=== PATIENT | female | born 1965 | race Caucasian/White ===

== ENCOUNTER 2022-10-28 12:49 | Inpatient (IN) ==
--- NOTE | 2022-10-28 12:57 | DR.GENAD ---
HPI <Magdy Childs - Last Filed: 10/28/22 16:02> Time Seen Time Seen by Provider: 10/28/22 13:05 Complaint/Symptoms Chief Complaint Doctors Comments: 57 y/o female presents for evalution. Was traveling to see Dr Ritika VILLASENOR. Had a syncopal episode in the car. Pt with a h/o chronic ascites, cirrhosis. + still drinks alcohol. Has had increased swelling of the abdomen over the past several days. + feels tight. + loose cough, with shortness of breath. Denies fevers, nausea, vomiting. Has been having diarrhea. Abdomen last drained 1 month ago. Nurses notes reviewed Nurses Notes Review: Yes Source History Provided: Patient and Family Member PMH <Magdy Childs - Last Filed: 10/28/22 16:02> PMH Past Medical History: Yes Past Medical History Comment: Cirrhosis, ascites Social History Does patient currently use any type of tobacco product: Yes Alcohol Use: DAILY Do you use any recreational Drugs:: No ROS <Magdy Childs - Last Filed: 10/28/22 16:02> Review of Systems Constitutional: Weakness Eyes: No Symptoms Reported ENTM: No Symptoms Reported Respiratoy: Moist Cough and Short of Breath Cardiovascular: No Symptoms Reported Gastrointestinal/Abdominal: See HPI Genitourinary: No Symptoms Reported Neurological: No Symptoms Reported Musculoskeletal: No Symptoms Reported Integumentary: No Symptoms Reported Psychiatric: No Symptoms Reported All Other Systems: Reviewed and Negative PE <Magdy Childs Last Filed: 10/28/22 16:02> Vital Signs Vitals: Temperature 97.9 F Pulse Rate 107 Respiratory Rate 24 Blood Pressure 104/74 O2 Sat by Pulse Oximetry 97 General General Appearance: Alert and Anxious Eyes Eye exam: PERRL and EOMI ENT ENT Exam: Normal Oropharynx and Mucous Membranes Moist Neck Neck Exam: Normal Inspection Respiratory Respiratory Exam: Other (+ decreased breath sounds R base.); negative Accessory Muscle Use or Respiratory Distress Cardiovascular Cardiovascular Exam: Regular Rate, Normal Rhythm, Tachycardia and Normal Heart Sounds Abdominal Exam Abdominal Exam: Normal Bowel Sounds, Soft and Distention (+ ascites); negative Tenderness, Guarding or Rigidity Extremities Extremities Exam: Normal Inspection and Full ROM; negative Edema Back Back Exam: Normal Inspection Neurologic Neurological Exam: Alert, Oriented X3 and CN II-XII Intact; negative Motor Sensory Deficit Skin Skin Exam: Warm and Dry <KHALDON AL SAADI - Last Filed: 10/28/22 15:53> Vital Signs Vitals: Temperature 97.9 F Pulse Rate 107 Respiratory Rate 24 Blood Pressure 104/74 O2 Sat by Pulse Oximetry 97 COURSE <Magdy Childs - Last Filed: 10/28/22 16:02> Treatment Treatment: 57 y/o female, h/o cirrhosis/ascites, had syncopal episode on way to GI office. + awake, alert on arrival. W/u initiated. CXR - + belem out R side. pO2 87% on RA, better on O2. + elevated WBC 15K, low K+ 2.8. Will give dose of IV rocephin, to cover for any possible underlying pneumonia. Will pursue CT of chest with IV contrast to better evaluate R lung. 1540 - + large R pleural effusion, surround collapsed/compressed R lungs. No previous h/o pleural effusions per pt. Discussed with Dr Nicole, covering for admissions. Will admit, consult with Dr Hunter to evaluate for chest tube/drainage of R pleural effusion, as well as for tapping her worsening ascites. ROR <Magdy Childs - Last Filed: 10/28/22 16:02> Labs Reviewed Laboratory Results Reviewed?: Yes Result Diagrams: 10/28/22 13:31 10/28/22 13:27 Laboratory: WBC 15.8 X10^3/uL (3.6-10.0) H 10/28/22 13:31 RBC 3.49 X10^6/uL (3.5-5.4) L 10/28/22 13:31 Hgb 11.4 g/dL (12.0-16.0) L 10/28/22 13:31 Hct 34.4 % (36.0-47.0) L 10/28/22 13:31 MCV 98.6 fL (80.0-100.0) 10/28/22 13:31 MCH 32.7 pg (27.0-34.0) 10/28/22 13:31 MCHC 33.1 g/dL (33.0-35.0) 10/28/22 13:31 RDW 21.2 % (11.6-16.5) H 10/28/22 13:31 Plt Count 183 X10^3/uL (150.0-450.0) 10/28/22 13:31 Plt Count Comment Adequate (ADEQUATE) 10/28/22 13:31 MPV 9.1 fL (7.4-11.0) 10/28/22 13:31 Neut % (Auto) 76.5 % (42.0-75.0) H 10/28/22 13:31 Lymph % (Auto) 12.9 % (21.0-51.0) L 10/28/22 13:31 [place] % (Auto) 10.1 % (0.0-13.0) 10/28/22 13:31 Eos % (Auto) 0.0 % (0.9-2.9) L 10/28/22 13:31 Baso % (Auto) 0.5 % (0.2-1.0) 10/28/22 13:31 Neut # (Auto) 12.1 x10^3/uL (2.2-4.8) H 10/28/22 13:31 Lymph # (Auto) 2.0 X10^3/uL (1.3-2.9) 10/28/22 13:31 [place] # (Auto) 1.6 x10^3/uL (0.3-0.8) H 10/28/22 13:31 Eos # (Auto) 0.0 x10^3/uL (0.0-0.2) 10/28/22 13:31 Baso # (Auto) 0.1 X10^3/uL (0.0-0.1) 10/28/22 13:31 Absolute Nucleated RBC 0.2 /100WBC 10/28/22 13:31 Plt Morphology Comment Normal (NORMAL) 10/28/22 13:31 RBC Morphology Abnormal (NORMAL) A 10/28/22 13:31 Anisocytosis 1+ A 10/28/22 13:31 Target Cells Present 10/28/22 13:31 Sample Site Rr 10/28/22 12:54 ABG pH 7.380 (7.35-7.45) 10/28/22 12:54 ABG pCO2 41.0 mmHg (35.0-45.0) 10/28/22 12:54 ABG pO2 54.0 mmHg (80.0-100.0) L 10/28/22 12:54 ABG HCO3 24.3 mmol/L (22-26) 10/28/22 12:54 ABG O2 Saturation 87.0 % (90-100) L 10/28/22 12:54 ABG Base Excess -0.8 mmol/L (-2.0-2.0) 10/28/22 12:54 Abilio Test Pos 10/28/22 12:54 A-a Gradient 44.0 mmHg 10/28/22 12:54 FiO2 21.0 10/28/22 12:54 Blood Gas Comments Pt yaw well cdn 10/28/22 12:54 Sodium 135 mmol/L (136-145) L 10/28/22 13:27 Corrected Sodium 136 mmol/L (136-145) 10/28/22 13:27 Potassium 2.8 mmol/L (3.5-5.1) L* 10/28/22 13:27 Chloride 98 mmol/L (98-107) 10/28/22 13:27 Carbon Dioxide 25.8 mmol/L (21-32) 10/28/22 13:27 BUN 8 mg/dL (7-18) 10/28/22 13:27 Creatinine 0.73 mg/dL (0.55-1.02) 10/28/22 13:27 Est GFR (MDRD) Af Amer > 60 (>60) 10/28/22 13:27 Est GFR (MDRD) Non-Af > 60 (>60) 10/28/22 13:27 Glucose 137 mg/dL (65-99) H 10/28/22 13:27 Lactic Acid 5.1 mmol/L (0.4-2.0) H 10/28/22 13:27 Calcium 7.7 mg/dL (8.5-10.1) L 10/28/22 13:27 Corrected Calcium 9.1 mg/dL (8.5-10.1) 10/28/22 13:27 Magnesium 1.8 mg/dL (2.0-2.9) L 10/28/22 13:27 Total Bilirubin 1.70 mg/dL (0.2-1.0) H 10/28/22 13:27 AST 188 Units/L (15-37) H 10/28/22 13:27 ALT 48 Units/L (12-78) 10/28/22 13:27 Alkaline Phosphatase 164 Units/L (46-116) H 10/28/22 13:27 Ammonia 57 umol/L (11-32) H 10/28/22 13:27 Troponin I High Sens 14.6 ng/L (4.0-60.0) 10/28/22 13:27 Total Protein 7.3 g/dL (6.4-8.2) 10/28/22 13:27 Albumin 2.2 g/dL (3.4-5.0) L 10/28/22 13:27 Globulin 5.1 g/dL (2.5-4.5) H 10/28/22 13:27 Albumin/Globulin Ratio 0.4 Ratio (1.1-2.1) L 10/28/22 13:27 Lipase 471 Units/L (73-393) H 10/28/22 13:27 WBC elevated 15K. Potassium low at 2.8. XRAY XRAY Interpreted by: Both X-ray Results: + large R pleural effusion, with collapse of R lungs. + abdominal ascites. <QASIM KLINE - Last Filed: 10/28/22 15:53> Labs Reviewed Laboratory: WBC 15.8 X10^3/uL (3.6-10.0) H 10/28/22 13:31 RBC 3.49 X10^6/uL (3.5-5.4) L 10/28/22 13:31 Hgb 11.4 g/dL (12.0-16.0) L 10/28/22 13:31 Hct 34.4 % (36.0-47.0) L 10/28/22 13:31 MCV 98.6 fL (80.0-100.0) 10/28/22 13:31 MCH 32.7 pg (27.0-34.0) 10/28/22 13:31 MCHC 33.1 g/dL (33.0-35.0) 10/28/22 13:31 RDW 21.2 % (11.6-16.5) H 10/28/22 13:31 Plt Count 183 X10^3/uL (150.0-450.0) 10/28/22 13:31 Plt Count Comment Adequate (ADEQUATE) 10/28/22 13:31 MPV 9.1 fL (7.4-11.0) 10/28/22 13:31 Neut % (Auto) 76.5 % (42.0-75.0) H 10/28/22 13:31 Lymph % (Auto) 12.9 % (21.0-51.0) L 10/28/22 13:31 [place] % (Auto) 10.1 % (0.0-13.0) 10/28/22 13:31 Eos % (Auto) 0.0 % (0.9-2.9) L 10/28/22 13:31 Baso % (Auto) 0.5 % (0.2-1.0) 10/28/22 13:31 Neut # (Auto) 12.1 x10^3/uL (2.2-4.8) H 10/28/22 13: Lymph # (Auto) 2.0 X10^3/uL (1.3-2.9) 10/28/22 13:31 [place] # (Auto) 1.6 x10^3/uL (0.3-0.8) H 10/28/22 13:31 Eos # (Auto) 0.0 x10^3/uL (0.0-0.2) 10/28/22 13:31 Baso # (Auto) 0.1 X10^3/uL (0.0-0.1) 10/28/22 13: Absolute Nucleated RBC 0.2 /100WBC 10/28/22 13:31 Plt Morphology Comment Normal (NORMAL) 10/28/22 13: RBC Morphology Abnormal (NORMAL) A 10/28/22 13: Anisocytosis 1+ A 10/28/22 13:31 Target Cells Present 10/28/22 13:31 Sample Site Rr 10/28/22 12:54 ABG pH 7.380 (7.35-7.45) 10/28/22 12:54 ABG pCO2 41.0 mmHg (35.0-45.0) 10/28/22 12:54 ABG pO2 54.0 mmHg (80.0-100.0) L 10/28/22 12:54 ABG HCO3 24.3 mmol/L (22-26) 10/28/22 12:54 ABG O2 Saturation 87.0 % (90-100) L 10/28/22 12:54 ABG Base Excess -0.8 mmol/L (-2.0-2.0) 10/28/22 12:54 Abilio Test Pos 10/28/22 12:54 A-a Gradient 44.0 mmHg 10/28/22 12:54 FiO2 21.0 10/28/22 12:54 Blood Gas Comments Pt yaw well cdn 10/28/22 12:54 Sodium 135 mmol/L (136-145) L 10/28/22 13:27 Corrected Sodium 136 mmol/L (136-145) 10/28/22 13:27 Potassium 2.8 mmol/L (3.5-5.1) L* 10/28/22 13:27 Chloride 98 mmol/L (98-107) 10/28/22 13:27 Carbon Dioxide 25.8 mmol/L (21-32) 10/28/22 13:27 BUN 8 mg/dL (7-18) 10/28/22 13:27 Creatinine 0.73 mg/dL (0.55-1.02) 10/28/22 13:27 Est GFR (MDRD) Af Amer > 60 (>60) 10/28/22 13:27 Est GFR (MDRD) Non-Af > 60 (>60) 10/28/22 13:27 Glucose 137 mg/dL (65-99) H 10/28/22 13:27 Lactic Acid 5.1 mmol/L (0.4-2.0) H 10/28/22 13:27 Calcium 7.7 mg/dL (8.5-10.1) L 10/28/22 13:27 Corrected Calcium 9.1 mg/dL (8.5-10.1) 10/28/22 13:27 Magnesium 1.8 mg/dL (2.0-2.9) L 10/28/22 13:27 Total Bilirubin 1.70 mg/dL (0.2-1.0) H 10/28/22 13:27 AST 188 Units/L (15-37) H 10/28/22 13:27 ALT 48 Units/L (12-78) 10/28/22 13:27 Alkaline Phosphatase 164 Units/L (46-116) H 10/28/22 13:27 Ammonia 57 umol/L (11-32) H 10/28/22 13:27 Troponin I High Sens 14.6 ng/L (4.0-60.0) 10/28/22 13:27 Total Protein 7.3 g/dL (6.4-8.2) 10/28/22 13:27 Albumin 2.2 g/dL (3.4-5.0) L 10/28/22 13:27 Globulin 5.1 g/dL (2.5-4.5) H 10/28/22 13:27 Albumin/Globulin Ratio 0.4 Ratio (1.1-2.1) L 10/28/22 13:27 Lipase 471 Units/L (73-393) H 10/28/22 13:27 Opioid <Magdy Childs - Last Filed: 10/28/22 16:02> Opioid Risk Tool Total: 0 Total Score Risk Category: Low Risk Copyright: Maximiliano SAENZ predicting aberrant behaviors <QASIM KLINE - Last Filed: 10/28/22 15:53> Opioid Risk Tool Total: 0 Total Score Risk Category: Low Risk Discharge Plan Diagnosis Discharge Problem: Ascites due to alcoholic cirrhosis, Pleural effusion, right, Acute dyspnea Discharge Plan Patient Disposition: ADMITTED INPATIENT Condition: Stable Orders to Discharge Patient Discharge Orders: Transfer (Routine); Ordered 10/28/22 Ordered By: Magdy Childs
[2022-10-28 13:05] LABS: ABG ALLEN TEST POS; ABG BASE EXCESS -0.8 mmol/L (-2.0-2.0); ABG HCO3 24.3 mmol/L (22-26)
[2022-10-28 13:22] LABS: BASOPHILS # (AUTO) 0.1 X10^3/uL (0.0-0.1); BASOPHILS % (AUTO) 0.5 % (0.2-1.0); HEMATOCRIT 34.4 % (36.0-47.0); HEMOGLOBIN 11.4 g/dL (12.0-16.0); LYMPHOCYTES % (AUTO) 12.9 % (21.0-51.0); MEAN CORPUSCULAR HEMOGLOBIN 32.7 pg (27.0-34.0); MEAN CORPUSCULAR HGB CONC 33.1 g/dL (33.0-35.0); MEAN CORPUSCULAR VOLUME 98.6 fL (80.0-100.0); MEAN PLATELET VOLUME 9.1 fL (7.4-11.0); MONOCYTES # (AUTO) 1.6 x10^3/uL (0.3-0.8); MONOCYTES % (AUTO) 10.1 % (0.0-13.0); NEUTROPHILS # (AUTO) 12.1 x10^3/uL (2.2-4.8); NEUTROPHILS % (AUTO) 76.5 % (42.0-75.0); RED BLOOD COUNT 3.49 X10^6/uL (3.5-5.4); RED CELL DISTRIBUTION WIDTH 21.2 % (11.6-16.5); WHITE BLOOD COUNT 15.8 X10^3/uL (3.6-10.0)
[2022-10-28 13:35] LABS: ALANINE AMINOTRANSFERASE 48 Units/L (12-78); ALBUMIN 2.2 g/dL (3.4-5.0); ALKALINE PHOSPHATASE 164 Units/L (46-116); ASPARTATE AMINO TRANSFERASE 188 Units/L (15-37); BLOOD UREA NITROGEN 8 mg/dL (7-18); CALCIUM 7.7 mg/dL (8.5-10.1); CARBON DIOXIDE 25.8 mmol/L (21-32); CHLORIDE 98 mmol/L (98-107); COR CA(FOR HYPOALB) 9.1 mg/dL (8.5-10.1); COR NA(FOR HYPERGLY) 136 mmol/L (136-145); CREATININE 0.73 mg/dL (0.55-1.02); LIPASE 471 Units/L (73-393); SODIUM 135 mmol/L (136-145); TOTAL PROTEIN 7.3 g/dL (6.4-8.2); eGFR NON BLACK RACES > 60 (>60)
[2022-10-28 13:38] LABS: ANISOCYTOSIS 1+; PLATELET MORPHOLOGY COMMENT NORMAL (NORMAL); TARGET CELLS PRESENT
[2022-10-28 14:04] LABS: AMMONIA 57 umol/L (11-32)
[2022-10-28 14:10] LABS: LACTIC ACID 5.1 mmol/L (0.4-2.0)
[2022-10-28] MEDS ORDERED: ROCEPHIN VIAL 1 GRAM 1 G in NS 100 ML IV 100 ML IV ONE (14:15)
[2022-10-28] MEDS ORDERED: ROCEPHIN VIAL 1 GRAM ONE (14:21)
--- NOTE | 2022-10-28 14:40 | RAD ---
HISTORYDYSPNEASTUDYSingle-view [id number]/27/2023FINDINGSThe trachea is midline. The cardiac silhouette is unremarkable. Complete opacification of the right wilbert thorax is observed with expansion of the intracostal space is likely the basis of underlying effusion. The left wilbert thorax appears well aerated. The bony thorax is unremarkable.IMPRESSIONComplete whiteout of the right chest without significant volume loss. Findings are likely the basis of underlying effusion.Electronically signed by: SHARA SHARMA (Oct 28, 2022 14:39:21)
[2022-10-28] MEDS ORDERED: MORPHINE SULFATE INJ 4 MG IVP ONE (14:41)
[2022-10-28] MEDS ORDERED: ZOFRAN INJ 4 MG VIAL IVP ONE (14:41)
[2022-10-28] MEDS ORDERED: ZOFRAN INJ 4 MG VIAL ONE (14:49)
[2022-10-28] MEDS ORDERED: MORPHINE SULFATE INJ 4 MG ONE (14:49)
--- NOTE | 2022-10-28 14:57 | CT ---
CHEST WITH CONCLINICAL INDICATION: DyspneaPROCEDURE: Following administration of non-ionic IV contrast, postcontrast CT images were obtained through the chest. Dose reduction techniques including Automated Exposure Control (AEC) and adjustment of mA and kV were utlized.COMPARISON: [None]FINDINGS:The heart is normal in size . No pericardial effusion . No suspicious mediastinal or axillary lymph nodes. Large right-sided pneumothorax essentially encompasses the entire wilbert thorax. Total atelectasis of the right lung. Mediastinal shift to the left. Left lung is within normal limits..Airways are patent . No suspicious pulmonary nodules or masses .Cirrhosis of the liver and hepatic steatosis. Moderate to large volume ascites..No aggressive osseous lesions.IMPRESSION:1. Very large right-sided pleural effusion with tension morphology. Correlate with hemodynamic status.2. Cirrhosis, hepatic steatosis and large volume ascites.Electronically signed by: ABBEY FORTE (Oct 28, 2022 14:56:29)
[2022-10-28] MEDS ORDERED: POTASSIUM CHL 40 MEQ/NS 0.45% 500 ML IV PRN (15:53)
[2022-10-28] MEDS ORDERED: K-DUR TAB 20 MEQ PO PRN (15:53)
[2022-10-28] MEDS ORDERED: POTASSIUM CHL 60 MEQ/NS 0.45% 500 ML IV PRN (15:53)
[2022-10-28] MEDS ORDERED: K-RIDER 10 MEQ/NS 100 ML 10 MEQ/100 ML BAG IV PRN (15:53)
[2022-10-28] MEDS ORDERED: KLOR-CON PO PRN (15:53)
[2022-10-28] MEDS ORDERED: MICRO K EXTEN CAP 10 MEQ PO PRN (15:53)
[2022-10-28] MEDS ORDERED: POTASSIUM CHLORIDE LIQ 20 MEQ UDC PO PRN (15:53)
[2022-10-28] MEDS ORDERED: ZOFRAN INJ 4 MG VIAL IVP PRN (16:23)
[2022-10-28] MEDS ORDERED: NS 250 ML IV 250 ML IV ONE (16:40)
[2022-10-28 16:52] VITALS: BMI 26.4
[2022-10-28] MEDS: ROCEPHIN VIAL 1 GRAM 1 G in NS 100 ML IV 100 ML IV SCH (17:12)
[2022-10-28] MEDS: NS 250 ML IV 250 ML IV SCH (17:17)
[2022-10-28] MEDS: MORPHINE SULFATE INJ 4 MG IVP PRN (18:46)
[2022-10-28 19:00] LABS: BILIRUBIN,URINE NEGATIVE (NEGATIVE); BLOOD/HEMOGLOBIN,URINE 1+ (NEGATIVE); GLUCOSE, URINE NEGATIVE (NEGATIVE); KETONES,URINE NEGATIVE (NEGATIVE); LEUKOCYTE ESTERASE ,URINE 1+ (NEGATIVE); NITRITES,URINE POSITIVE (NEGATIVE); PH,URINE 6.5 (5.0 - 8.0); PROTEIN,URINE 2+ (NEGATIVE); UROBILINOGEN,URINE NORMAL (NORMAL)
[2022-10-28 19:13] LABS: APPEARANCE,URINE SLIGHTLY HAZY (CLEAR); COLOR,URINE YELLOW (YELLOW); RBC,URINE 0-2 /HPF (0-3); SQUAMOUS EPITHELIAL CELL,UR FEW /HPF (NEGATIVE)
[2022-10-28 19:14] LABS: BACTERIA,URINE 2+ /HPF (NEGATIVE)
[2022-10-28] MEDS ORDERED: KLONOPIN TAB 0.5 MG PO ONE (19:14)
[2022-10-28] MEDS ORDERED: XOPENEX 1.25 MG/3 ML NEBULE NEB ONE (19:14)
[2022-10-28] MEDS: XOPENEX 1.25 MG/3 ML NEBULE NEB SCH (20:17)
[2022-10-28] MEDS: NICOTINE PATCH TD SCH (20:18)
[2022-10-28] MEDS: MAGNESIUM SULFATE 1 GRAM/100 mL PREMIX 1 G/100 ML BAG IV PRN ×2 (20:19→22:03)
[2022-10-29] MEDS: MORPHINE SULFATE INJ 4 MG IVP PRN ×3 (00:32→19:01)
[2022-10-29] MEDS: XOPENEX 1.25 MG/3 ML NEBULE NEB SCH ×4 (00:36→21:35)
[2022-10-29] MEDS: VISTARIL PO PRN (04:00)
[2022-10-29] MEDS: NS 250 ML IV 250 ML IV SCH ×2 (05:04→21:57)
[2022-10-29 05:21] LABS: BASOPHILS # (AUTO) 0.1 X10^3/uL (0.0-0.1); BASOPHILS % (AUTO) 0.8 % (0.2-1.0); HEMATOCRIT 34.2 % (36.0-47.0); HEMOGLOBIN 11.2 g/dL (12.0-16.0); LYMPHOCYTES # (AUTO) 1.2 X10^3/uL (1.3-2.9); LYMPHOCYTES % (AUTO) 9.1 % (21.0-51.0); MEAN CORPUSCULAR HEMOGLOBIN 32.8 pg (27.0-34.0); MEAN CORPUSCULAR HGB CONC 32.9 g/dL (33.0-35.0); MEAN CORPUSCULAR VOLUME 99.9 fL (80.0-100.0); MEAN PLATELET VOLUME 9.5 fL (7.4-11.0); MONOCYTES # (AUTO) 1.4 x10^3/uL (0.3-0.8); MONOCYTES % (AUTO) 10.1 % (0.0-13.0); NEUTROPHILS # (AUTO) 10.9 x10^3/uL (2.2-4.8); RED BLOOD COUNT 3.42 X10^6/uL (3.5-5.4); RED CELL DISTRIBUTION WIDTH 21.5 % (11.6-16.5); WHITE BLOOD COUNT 13.6 X10^3/uL (3.6-10.0)
[2022-10-29 05:31] LABS: ALANINE AMINOTRANSFERASE 53 Units/L (12-78); ALBUMIN 2.2 g/dL (3.4-5.0); ALKALINE PHOSPHATASE 156 Units/L (46-116); ASPARTATE AMINO TRANSFERASE 215 Units/L (15-37); BLOOD UREA NITROGEN 8 mg/dL (7-18); CALCIUM 7.7 mg/dL (8.5-10.1); CARBON DIOXIDE 23.8 mmol/L (21-32); CHLORIDE 96 mmol/L (98-107); COR CA(FOR HYPOALB) 9.1 mg/dL (8.5-10.1); CREATININE 0.77 mg/dL (0.55-1.02); MAGNESIUM 2.3 mg/dL (2.0-2.9); SODIUM 132 mmol/L (136-145); TOTAL PROTEIN 7.5 g/dL (6.4-8.2); eGFR NON BLACK RACES > 60 (>60)
[2022-10-29 05:41] LABS: ANISOCYTOSIS 1+; PLATELET MORPHOLOGY COMMENT NORMAL (NORMAL); TARGET CELLS 1+
[2022-10-29] MEDS ORDERED: XYLOCAINE 1 % (PLAIN) ONE (07:12)
[2022-10-29] MEDS ORDERED: ATIVAN INJ 2 MG VIAL IVP ONE (07:30)
--- NOTE | 2022-10-29 07:47 | RAD ---
HISTORYStatus post thoracentesis for right pleural effusionSTUDYChest AP [id number]/18/2023FINDINGSHear t size is normal. Sil are normal. Lung bergeron appear clear. There has been a huge decrease in the size of the patient's right pleural effusion status post thoracentesis. Residual fluid remains. No pneumothorax is identified. Bony thorax is unremarkable.IMPRESSIONVery large decrease in the size of the patient's right pleural effusion status post thoracentesis. No pneumothoraxNo infiltratesElectronically signed by: ESTEPHANIA HERRERA (Oct 29, 2022 07:46:38)
[2022-10-29] MEDS ORDERED: NADOLOL 20 MG PO SCH (09:00)
[2022-10-29] MEDS: ROCEPHIN VIAL 1 GRAM 1 G in NS 100 ML IV 100 ML IV SCH (09:29)
[2022-10-29] MEDS: LASIX PO SCH (09:29)
[2022-10-29] MEDS: K-DUR TAB 20 MEQ PO SCH (09:29)
[2022-10-29] MEDS: NICOTINE PATCH TD SCH (09:30)
[2022-10-30] MEDS: MORPHINE SULFATE INJ 4 MG IVP PRN ×3 (00:26→09:13)
[2022-10-30] MEDS: VISTARIL PO PRN (01:09)
[2022-10-30 05:26] LABS: BASOPHILS % (AUTO) 0.5 % (0.2-1.0); EOSINOPHILS % (AUTO) 0.2 % (0.9-2.9); HEMATOCRIT 30.2 % (36.0-47.0); HEMOGLOBIN 10.1 g/dL (12.0-16.0); LYMPHOCYTES # (AUTO) 1.2 X10^3/uL (1.3-2.9); MEAN CORPUSCULAR HEMOGLOBIN 33.4 pg (27.0-34.0); MEAN CORPUSCULAR HGB CONC 33.6 g/dL (33.0-35.0); MEAN CORPUSCULAR VOLUME 99.4 fL (80.0-100.0); MEAN PLATELET VOLUME 9.6 fL (7.4-11.0); MONOCYTES % (AUTO) 10.8 % (0.0-13.0); NEUTROPHILS # (AUTO) 6.6 x10^3/uL (2.2-4.8); NEUTROPHILS % (AUTO) 74.5 % (42.0-75.0); RED BLOOD COUNT 3.03 X10^6/uL (3.5-5.4); RED CELL DISTRIBUTION WIDTH 21.9 % (11.6-16.5); WHITE BLOOD COUNT 8.9 X10^3/uL (3.6-10.0)
[2022-10-30 05:35] LABS: ALANINE AMINOTRANSFERASE 40 Units/L (12-78); ALBUMIN 1.5 g/dL (3.4-5.0); ALKALINE PHOSPHATASE 104 Units/L (46-116); ASPARTATE AMINO TRANSFERASE 151 Units/L (15-37); BLOOD UREA NITROGEN 9 mg/dL (7-18); CALCIUM 7.3 mg/dL (8.5-10.1); CARBON DIOXIDE 29.5 mmol/L (21-32); CHLORIDE 100 mmol/L (98-107); COR CA(FOR HYPOALB) 9.3 mg/dL (8.5-10.1); CREATININE 0.64 mg/dL (0.55-1.02); SODIUM 133 mmol/L (136-145); TOTAL PROTEIN 5.5 g/dL (6.4-8.2); eGFR NON BLACK RACES > 60 (>60)
[2022-10-30 05:47] LABS: ANISOCYTOSIS 1+; PLATELET MORPHOLOGY COMMENT NORMAL (NORMAL); TARGET CELLS 1+
[2022-10-30] MEDS: XOPENEX 1.25 MG/3 ML NEBULE NEB SCH (06:01)
[2022-10-30] MEDS ORDERED: NS 250 ML IV 250 ML IV ONE (08:12)
--- NOTE | 2022-10-30 08:21 | DR.PROGNOT ---
HOSPITAL PROGRESS NOTE Progress Note for Day of: Progress Note Date: 10/30/22 Chief Complaint Chief Complaint: less SOB . moderate abdominal pressure , tolerating diet , improved tachycardia and tachypnea. O2 sat is above 90. BUN and creatinine are normal. Total bilirubin is 2. Serum albumin is 1.5. White count 8.9. Past Medical Family Social History Past Med/Fam/Surg Hx: No changes since H&P Allergies: Allergies No Known Allergies Allergy (Verified 10/28/22 13:11) Vital Signs Vital Signs: Temperature 98.5 F Pulse Rate 77 Respiratory Rate 15 Blood Pressure 107/74 O2 Sat by Pulse Oximetry 100 Physical Exam Oriented: Normal Respiratory: Diminished (Slightly diminished breath sounds on the right) GI:Palpation: Other (Moderate abdominal distention but soft abdomen with good bowel sounds.) Speech Pattern: Clear and Appropriate Laboratory and Diagnostics Result Diagrams: 10/30/22 04:15 10/30/22 04:15 Labs: 10/28/22 18:40 Urine,Clean Catch Urine Culture - Preliminary Laboratory WBC 8.9 X10^3/uL (3.6-10.0) 10/30/22 04:15 RBC 3.03 X10^6/uL (3.5-5.4) L 10/30/22 04:15 Hgb 10.1 g/dL (12.0-16.0) L 10/30/22 04:15 Hct 30.2 % (36.0-47.0) L 10/30/22 04:15 MCV 99.4 fL (80.0-100.0) 10/30/22 04:15 MCH 33.4 pg (27.0-34.0) 10/30/22 04:15 MCHC 33.6 g/dL (33.0-35.0) 10/30/22 04:15 RDW 21.9 % (11.6-16.5) H 10/30/22 04:15 Plt Count 91 X10^3/uL (150.0-450.0) L 10/30/22 04:15 Plt Count Comment Decreased (ADEQUATE) A 10/30/22 04:15 MPV 9.6 fL (7.4-11.0) 10/30/22 04:15 Neut % (Auto) 74.5 % (42.0-75.0) 10/30/22 04:15 Lymph % (Auto) 14.0 % (21.0-51.0) L 10/30/22 04:15 [place] % (Auto) 10.8 % (0.0-13.0) 10/30/22 04:15 Eos % (Auto) 0.2 % (0.9-2.9) L 10/30/22 04:15 Baso % (Auto) 0.5 % (0.2-1.0) 10/30/22 04:15 Neut # (Auto) 6.6 x10^3/uL (2.2-4.8) H 10/30/22 04:15 Lymph # (Auto) 1.2 X10^3/uL (1.3-2.9) L 10/30/22 04:15 [place] # (Auto) 1.0 x10^3/uL (0.3-0.8) H 10/30/22 04:15 Eos # (Auto) 0.0 x10^3/uL (0.0-0.2) 10/30/22 04:15 Baso # (Auto) 0.0 X10^3/uL (0.0-0.1) 10/30/22 04:15 Absolute Nucleated RBC 0.2 /100WBC 10/30/22 04:15 Plt Morphology Comment Normal (NORMAL) 10/30/22 04:15 RBC Morphology Abnormal (NORMAL) A 10/30/22 04:15 Anisocytosis 1+ A 10/30/22 04:15 Target Cells 1+ A 10/30/22 04:15 Sample Site Rr 10/28/22 12:54 ABG pH 7.380 (7.35-7.45) 10/28/22 12:54 ABG pCO2 41.0 mmHg (35.0-45.0) 10/28/22 12:54 ABG pO2 54.0 mmHg (80.0-100.0) L 10/28/22 12:54 ABG HCO3 24.3 mmol/L (22-26) 10/28/22 12:54 ABG O2 Saturation 87.0 % (90-100) L 10/28/22 12:54 ABG Base Excess -0.8 mmol/L (-2.0-2.0) 10/28/22 12:54 Abilio Test Pos 10/28/22 12:54 A-a Gradient 44.0 mmHg 10/28/22 12:54 FiO2 21.0 10/28/22 12:54 Blood Gas Comments Pt yaw well cdn 10/28/22 12:54 Sodium 133 mmol/L (136-145) L 10/30/22 04:15 Corrected Sodium TNP 10/30/22 04:15 Potassium 4.0 mmol/L (3.5-5.1) 10/30/22 04:15 Chloride 100 mmol/L (98-107) 10/30/22 04:15 Carbon Dioxide 29.5 mmol/L (21-32) 10/30/22 04:15 BUN 9 mg/dL (7-18) 10/30/22 04:15 Creatinine 0.64 mg/dL (0.55-1.02) 10/30/22 04:15 Est GFR (MDRD) Af Amer > 60 (>60) 10/30/22 04:15 Est GFR (MDRD) Non-Af > 60 (>60) 10/30/22 04:15 Glucose 67 mg/dL (65-99) 10/30/22 04:15 Lactic Acid 4.2 mmol/L (0.4-2.0) H 10/28/22 22:05 Calcium 7.3 mg/dL (8.5-10.1) L 10/30/22 04:15 Corrected Calcium 9.3 mg/dL (8.5-10.1) 10/30/22 04:15 Magnesium 2.3 mg/dL (2.0-2.9) 10/29/22 04:50 Total Bilirubin 2.00 mg/dL (0.2-1.0) H 10/30/22 04:15 AST 151 Units/L (15-37) H 10/30/22 04:15 ALT 40 Units/L (12-78) 10/30/22 04:15 Alkaline Phosphatase 104 Units/L (46-116) 10/30/22 04:15 Ammonia 57 umol/L (11-32) H 10/28/22 13:27 Troponin I High Sens 14.6 ng/L (4.0-60.0) 10/28/22 13:27 Total Protein 5.5 g/dL (6.4-8.2) L 10/30/22 04:15 Albumin 1.5 g/dL (3.4-5.0) L 10/30/22 04:15 Globulin 4.0 g/dL (2.5-4.5) 10/30/22 04:15 Albumin/Globulin Ratio 0.4 Ratio (1.1-2.1) L 10/30/22 04:15 Lipase 471 Units/L (73-393) H 10/28/22 13:27 Specimen Type Clean catch urine 10/28/22 18:40 Urine Color Yellow (YELLOW) 10/28/22 18:40 Urine Appearance Slightly hazy (CLEAR) 10/28/22 18:40 Urine pH 6.5 (5.0 - 8.0) 10/28/22 18:40 Ur Specific [place] 1.010 (1.000-1.030) 10/28/22 18:40 Urine Protein 2+ (NEGATIVE) 10/28/22 18:40 Urine Glucose (UA) Negative (NEGATIVE) 10/28/22 18:40 Urine Ketones Negative (NEGATIVE) 10/28/22 18:40 Urine Blood 1+ (NEGATIVE) 10/28/22 18:40 Urine Nitrite Positive (NEGATIVE) 10/28/22 18:40 Urine Bilirubin Negative (NEGATIVE) 10/28/22 18:40 Urine Urobilinogen Normal (NORMAL) 10/28/22 18:40 Ur Leukocyte Esterase 1+ (NEGATIVE) 10/28/22 18:40 Urine RBC 0-2 /HPF (0-3) 10/28/22 18:40 Urine WBC 0-2 /HPF (0-5) 10/28/22 18:40 Ur Squamous Epith Cells Few /HPF (NEGATIVE) 10/28/22 18:40 Urine Bacteria 2+ /HPF (NEGATIVE) 10/28/22 18:40 Urine Mucus Few /HPF (NEGATIVE) 10/28/22 18:40 Ur Culture Indicated? Yes/culture set up 10/28/22 18:40 Assessment and Plan 1: Right pleural effusion improved with thoracentesis. 2: Liver cirrhosis with recurrent ascites, seems to be stable. To add Aldactone 50 mg twice a day. SPA daily. We will do paracentesis only if needed. Problem Patient Problems: Patient Problems (Updated 10/28/22 @ 15:57 by Keiko Ty) Ascites due to alcoholic cirrhosis (Acute) K70.31 Pleural effusion, right (Acute) J90 Acute dyspnea (Acute) R06.00
[2022-10-30] MEDS ORDERED: ALDACTONE TAB 25 MG PO SCH (09:00)
[2022-10-30] MEDS ORDERED: PATIENT'S HOME MEDICATION PO SCH (09:00)
--- NOTE | 2022-10-30 09:01 | RAD ---
HISTORYPleural effusionSTUDYAP chestCOMPARISONApril 2022FINDINGSThere is interval recurrence of the right pleural effusion, now moderately large in degree with fluid level at the hilar level. Heart size remains normal with no change in appearance of the left chest.IMPRESSIONInterval recurrence of right pleural fluid. See above.Electronically signed by: GILMAR GARCIA (Oct 30, 2022 08:58:30)
[2022-10-30] MEDS: ROCEPHIN VIAL 1 GRAM 1 G in NS 100 ML IV 100 ML IV SCH (09:02)
[2022-10-30] MEDS: NICOTINE PATCH TD SCH (09:03)
[2022-10-30] MEDS: K-DUR TAB 20 MEQ PO SCH (09:03)
[2022-10-30] MEDS: LASIX PO SCH (09:14)
[2022-10-30 09:56] VITALS: BP 98/70
== END 2022-10-30 12:25 | disposition home or self-care (01) | DRG 433 ==
LOC: SUPCPDRO → ICU 12:49 → ER 12:49 → OBSVTOIN 15:32 → ICU 16:04
PROVIDERS: ADMIT Obstetrics & Gynecology Obstetrics; ATTEND Obstetrics & Gynecology Obstetrics
DX: K70.31 Alcoholic cirrhosis of liver with ascites; R07.89 Other chest pain; J90 Pleural effusion, not elsewhere classified; K72.10 Chronic hepatic failure without coma; R06.02 Shortness of breath; R19.7 Diarrhea, unspecified; E72.20 Disorder of urea cycle metabolism, unspecified; R55 Syncope and collapse